=== PATIENT | male | born 1955 | race Caucasian/White ===

== ENCOUNTER → 2017-09-04 | Outpatient (CLI) | payer BC | END | disposition home or self-care (01) | LOC: PCVCIMAG 13:46 | DX: I73.9 Peripheral vascular disease, unspecified (principal); M79.601 Pain in right arm; I70.8 Atherosclerosis of other arteries | CPT/HCPCS: 93925; 93931 ==

== ENCOUNTER → 2017-11-18 | Outpatient (CLI) | payer OTHER, BC | END | disposition home or self-care (01) | LOC: PCVCIMAG 09:59 | DX: I25.10 Atherosclerotic heart disease of native coronary artery without angina pectoris (principal); R06.09 Other forms of dyspnea; E11.9 Type 2 diabetes mellitus without complications; I73.9 Peripheral vascular disease, unspecified; Z87.891 Personal history of nicotine dependence | CPT/HCPCS: 78452; 93017; A9500 ==

== ENCOUNTER → 2019-04-21 | Outpatient (CLI) | payer OTHER ==
--- NOTE | 2019-04-21 11:26 | PCVCIMAG ---
APPROVED REPORT Study performed: 04/21/2019 10:00:38 Exam: Stress Echocardiogram Indication: CAD s/p PCI, RBBB, chest pain, dm Patient Location: Echo lab Stress Nurse: Brandie Briceno RN Status: routine Ht: 5 ft 7 in HR: 61 bpm BP: 140/80 mmHg Rhythm: NSR Procedure The patient underwent an Exercise Stress Test using the Bryon Protocol. Blood pressure, heart rate, and EKG were monitored. An Echocardiogram was performed by video technician in four stages in quad fashion. At peak stress, four selected images were obtained and placed side by side with resting images for comparison. Stress Test Details Stress Test: Exercise stress testing was performed using a Bryon protocol. HR Resting HR: 61 bpmMax Heart Rate (APMHR): 158 bpm Max HR Achieved: 144 bpmTarget HR (85% APMHR): 134 bpm % of APMHR: 91 Recovery HR: 75 bpm HR response to stress: Normal HR response to stress BP Resting BP: 140/80 mmHg Max BP: 164/80 mmHg Recovery BP: 124/78 mmHg BP response to stress: Normal blood pressure response to stress. ECG Resting ECG: Sinus Rhythm, RBBB Stress ECG: Sinus Rhythm, RBBB ST Change: Normal Arrhythmia: None Recovery ECG: Sinus Rhythm, RBBB Recovery ST Change: Normal Recovery Arrhythmia: None Clinical Reason for Termination: Maximal effort Stress Symptoms: Dyspnea Exercise duration: 9 min sec Highest Stage Achieved: Stage 3: 3.4 mph at 14% grade. Exercise capacity: 10.1 METs Overall Exercise Capacity for Age: Normal Scale: Active Angina Score: None Pre-Stress Echo The resting Echocardiogram showed normal left ventricular contractility with an estimated Ejection Fraction of about 50%. The resting echocardiogram demonstrated normal wall motion in all wall segments. Anteroseptal and inferoapical akinesis from known old [place]. Post-Stress Echo The stress Echocardiogram showed normal left ventricular contractility with an estimated Ejection Fraction of about 55-60%. Compared to rest, there were no stress-induced wall motion abnormalities. Anteroseptal and inferoapical akinesis from known old [place]. No new RWMA. Clinical No clinical or ECG evidence for ischemia. Conclusion Clinical Response: Non-ischemic Exercise Capacity: Average Stress ECG Response: Non-ischemic Stress Echo Images: Non-ischemic The left ventricle is normal in size and wall thickness in both the rest and stress images. Mild mitral regurgitation. Normal aortic, pulmonic and tricuspid valves. Other Information Study Quality: Adequate <Conclusion> The left ventricle is normal in size and wall thickness in both the rest and stress images. Mild mitral regurgitation. Normal aortic, pulmonic and tricuspid valves.
== END | disposition home or self-care (01) ==
LOC: PCVCIMAG 10:37
PROVIDERS: ATTEND Internal Medicine Cardiovascular Disease
DX: I34.0 Nonrheumatic mitral (valve) insufficiency (principal); I25.10 Atherosclerotic heart disease of native coronary artery without angina pectoris; I45.10 Unspecified right bundle-branch block; E11.9 Type 2 diabetes mellitus without complications; Z95.5 Presence of coronary angioplasty implant and graft
CPT/HCPCS: 93325; 93351